=== PATIENT | female | born 1930 | race Caucasian/White ===

== ENCOUNTER 2018-04-20 13:01 | Inpatient (IN) | payer MEDICARE, BC ==
[~2018-04-20] VITALS: Ht 157.5 cm; Wt 73.2 kg
[~2018-04-20 13:01] MED LIST: NO HOME MEDS
[2018-04-20] MEDS ORDERED: ondansetron/PF 4mg/2ml inj IV ONE (16:10)
[2018-04-20] MEDS ORDERED: normal saline 1000ML IV soln IVB ONE (16:10)
[2018-04-20 16:46] LABS: BASOPHILS % (AUTO) 0.4 % (0-1); EOSINOPHILS # (AUTO) 0.1 X10'3 (0-0.9); EOSINOPHILS % (AUTO) 1.2 % (0-6); HEMATOCRIT 42.1 % (35.0-45.0); HEMOGLOBIN 13.6 g/dl (12.0-16.0); LYMPHOCYTES # (AUTO) 1.1 X10'3 (1.1-4.8); LYMPHOCYTES % (AUTO) 9.8 % (21-51); MEAN CORPUSCULAR HEMOGLOBIN 28.9 PG (27.0-31.0); MEAN CORPUSCULAR HGB CONC 32.4 % (33.0-36.5); MEAN CORPUSCULAR VOLUME 89.4 FL (78-98); MEAN PLATELET VOLUME 9.7 FL (7.4-10.4); MONOCYTES # (AUTO) 0.6 X10'3 (0-0.9); NEUTROPHILS # (AUTO) 9.7 X10'3 (1.8-7.7); NEUTROPHILS % (AUTO) 83.6 % (42-75); PLATELET COUNT 239 X10'3 (140-440); RED CELL DISTRIBUTION WIDTH 14.1 % (11.5-14.5); WHITE BLOOD COUNT 11.6 X10'3 (4.5-11.0)
[2018-04-20 16:59] LABS: ALANINE AMINOTRANSFERASE 37 U/L (12-78); ALBUMIN/GLOBULIN RATIO 1.2 (1.1-1.5); ALKALINE PHOSPHATASE 47 IU/L (46-116); ANION GAP 12 (8-16); ASPARTATE AMINO TRANSFERASE 30 U/L (10-37); BILIRUBIN,TOTAL 1.1 MG/DL (0.1-1.0); BLOOD UREA NITROGEN 21 MG/DL (7-18); BUN/CREATININE RATIO 23.9 (6.6-38.0); CALCIUM 9.3 MG/DL (8.5-10.1); CHLORIDE 105 MMOL/L (99-107); CREATININE 0.88 MG/DL (0.40-0.90); GLUCOSE 137 MG/DL (70-104); LIPASE 141 U/L (73-393); POTASSIUM 3.4 MMOL/L (3.5-5.1); SODIUM 143 MMOL/L (135-145); TOTAL CARBON DIOXIDE 26.5 MMOL/L (24-32); TOTAL PROTEIN 7.4 G/DL (6.4-8.2); eGFR 61 ML/MIN
[2018-04-20 17:03] LABS: CLARITY,URINE SLIGHTLY CLOUDY (Clear); COLOR,URINE Yellow (Yellow); GLUCOSE, URINE Negative (Neg); PH,URINE 5.5 (4.8-8.0); PROTEIN,URINE 30 mg/dl (Neg); UA COLLECTION TYPE VOIDED
[2018-04-20 17:04] LABS: KETONES,URINE 15 mg/dl (Neg); LEUKOCYTE ESTERASE ,URINE MODERATE (Neg); NITRITES, URINE NEGATIVE (Neg); OCCULT BLOOD,URINE LARGE (Neg); UROBILINOGEN,URINE 0.2 E.U/dL (0.2-1.0)
[2018-04-20 17:07] LABS: AMORPHOUS URATES 1+; BACTERIA,URINE NONE SEEN /HPF (Neg); MUCUS STRANDS NONE SEEN /LPF (Neg); SQUAMOUS EPITHELIAL CELL,UR MODERATE /LPF (FEW); URIC ACID CRYSTALS 1+ /HPF (NEGATIVE); WBC,URINE 30-50 /HPF (0-4)
[2018-04-20] MEDS ORDERED: ondansetron/PF 4mg/2ml inj IV PRN (17:40)
[2018-04-20] MEDS ORDERED: mag hydrox/Alum hydrox/simeth 30ml oral suspension PO PRN (17:40)
[2018-04-20] MEDS ORDERED: acetaminophen 650mg rectal suppository RC PRN (17:40)
[2018-04-20] MEDS ORDERED: acetaminophen 325mg tablet PO PRN ×2 (17:40)
[2018-04-20] MEDS ORDERED: magnesium 4gm in 100ml NS 100 ML IV PRN (17:40)
[2018-04-20] MEDS ORDERED: potassium Cl 20 mEq SR tablet PO PRN ×2 (17:40)
[2018-04-20] MEDS ORDERED: diphenhydrAMINE 25mg capsule PO PRN (17:40)
[2018-04-20] MEDS ORDERED: magnesium Cl slow-release 64mg tablet PO PRN (17:40)
[2018-04-20] MEDS ORDERED: magnesium hydroxide 30ml (MOM) UD suspension PO PRN (17:40)
[2018-04-20] MEDS: K and/or MAG REPLACEMENT MC SCH (17:40)
[2018-04-20] MEDS ORDERED: HYDROmorphone 1 mg/ml syringe IV PRN (17:40)
[2018-04-20] MEDS ORDERED: diphenhydrAMINE 50 mg/ml inj IV PRN (17:40)
[2018-04-20] MEDS ORDERED: potassium Cl 40MEQ/NS 500ml 500 ML IV PRN ×2 (17:40)
[2018-04-20] MEDS ORDERED: bisacodyl 10mg suppository rectal RC PRN (17:40)
[2018-04-20] MEDS ORDERED: CefTRIAXone/D5W-Rocephin 1gm 50 ML IV ONE (17:45)
[2018-04-20] MEDS ORDERED: ketorolac tromethamine 15mg/ml inj. IV ONE (17:45)
[2018-04-20] MEDS: normal saline 1000ml 1,000 ML IV SCH (18:08)
[2018-04-20] MEDS: CefTRIAXone/D5W-Rocephin 1gm 50 ML IV SCH (18:10)
[2018-04-20] MEDS ORDERED: PRE1T PO (18:37)
[2018-04-20] MEDS: heparin, porcine 5000 units/ml vial SQ SCH (20:00)
[2018-04-20 21:10] VITALS: BP 119/59
[2018-04-20] MEDS: HYDROmorphone 1 mg/ml syringe IV PRN (23:11)
[2018-04-21] VITALS (20 sets, daily range): BP systolic 93–123; BP diastolic 43–88
[2018-04-21] MEDS: normal saline 1000ml 1,000 ML IV SCH ×3 (03:57→23:56)
[2018-04-21] MEDS: HYDROmorphone 1 mg/ml syringe IV PRN ×2 (03:59→09:03)
[2018-04-21 05:46] LABS: ALANINE AMINOTRANSFERASE 25 U/L (12-78); ALBUMIN/GLOBULIN RATIO 1.2 (1.1-1.5); ALKALINE PHOSPHATASE 42 IU/L (46-116); ANION GAP 10 (8-16); ASPARTATE AMINO TRANSFERASE 22 U/L (10-37); BILIRUBIN,TOTAL 0.9 MG/DL (0.1-1.0); BLOOD UREA NITROGEN 18 MG/DL (7-18); BUN/CREATININE RATIO 18.8 (6.6-38.0); CHLORIDE 110 MMOL/L (99-107); CREATININE 0.96 MG/DL (0.40-0.90); GLUCOSE 94 MG/DL (70-104); MAGNESIUM 1.7 MG/DL (1.5-2.4); PHOSPHORUS 3.2 MG/DL (2.3-4.5); POTASSIUM 3.3 MMOL/L (3.5-5.1); SODIUM 145 MMOL/L (135-145); TOTAL CARBON DIOXIDE 25.2 MMOL/L (24-32); TOTAL PROTEIN 5.6 G/DL (6.4-8.2); eGFR 55 ML/MIN
[2018-04-21 06:47] LABS: BASOPHILS % (AUTO) 0.5 % (0-1); EOSINOPHILS # (AUTO) 0.1 X10'3 (0-0.9); EOSINOPHILS % (AUTO) 0.9 % (0-6); HEMOGLOBIN 11.5 g/dl (12.0-16.0); LYMPHOCYTES # (AUTO) 2.2 X10'3 (1.1-4.8); LYMPHOCYTES % (AUTO) 23.8 % (21-51); MEAN CORPUSCULAR HEMOGLOBIN 29.5 PG (27.0-31.0); MEAN CORPUSCULAR HGB CONC 32.9 % (33.0-36.5); MEAN CORPUSCULAR VOLUME 89.6 FL (78-98); MEAN PLATELET VOLUME 9.5 FL (7.4-10.4); MONOCYTES % (AUTO) 11.2 % (2-12); NEUTROPHILS # (AUTO) 5.8 X10'3 (1.8-7.7); NEUTROPHILS % (AUTO) 63.6 % (42-75); PLATELET COUNT 164 X10'3 (140-440); RED BLOOD COUNT 3.91 X10'6 (4.20-5.60); RED CELL DISTRIBUTION WIDTH 14.3 % (11.5-14.5); WHITE BLOOD COUNT 9.2 X10'3 (4.5-11.0)
[2018-04-21] MEDS ORDERED: LIDOcaine 1% 30ml vial 5 ML in potassium Cl 40MEQ/NS 500ml 500 ML IV PRN (07:10)
[2018-04-21] MEDS: CefTRIAXone/D5W-Rocephin 1gm 50 ML IV SCH (07:26)
[2018-04-21] MEDS: K and/or MAG REPLACEMENT MC SCH (07:33)
[2018-04-21] MEDS: predniSONE 1 mg tablet PO SCH (08:00)
[2018-04-21] MEDS: heparin, porcine 5000 units/ml vial SQ SCH ×2 (08:00→20:43)
[2018-04-21 11:25] LABS: INR 1.1 INR; PARTIAL THROMBOPLASTIN TIME 26 SECONDS (22-32); PROTHROMBIN TIME 10.9 SECONDS (9.0-12.0)
[2018-04-21] MEDS ORDERED: ringers solution, lacted 1,000 ML IV SCH (12:48)
[2018-04-21] MEDS ORDERED: HYDROmorphone inj. 0.5 MG/0.5 ML DISP.SYRIN IV PRN (12:50)
[2018-04-21] MEDS ORDERED: ondansetron/PF 4mg/2ml inj IV PRN (12:50)
[2018-04-21] MEDS ORDERED: fentaNYL/PF 50MCG/1 ML 2ML syringe ONE (13:07)
[2018-04-21] MEDS ORDERED: sevoflurane 250ml liquid IH ONE (13:09)
[2018-04-21] MEDS ORDERED: dexamethasone sod phosphate 4mg/ml inj. ONE (13:36)
[2018-04-21] MEDS ORDERED: propofol inj 20 ML IV ONE (13:36)
[2018-04-21] MEDS ORDERED: ePHEDrine 50MG/ML INJ. ONE (13:36)
[2018-04-21] MEDS ORDERED: LIDOcaine 2% (20mg/ml) 5ml vial ONE (13:36)
[2018-04-21] MEDS ORDERED: succinylcholine 20mg/ml inj IV ONE (13:36)
[2018-04-22 05:05] LABS: BASOPHILS % (AUTO) 0.2 % (0-1); EOSINOPHILS % (AUTO) 0.1 % (0-6); HEMATOCRIT 35.2 % (35.0-45.0); HEMOGLOBIN 11.4 g/dl (12.0-16.0); LYMPHOCYTES # (AUTO) 1.4 X10'3 (1.1-4.8); LYMPHOCYTES % (AUTO) 18.8 % (21-51); MEAN CORPUSCULAR HEMOGLOBIN 28.9 PG (27.0-31.0); MEAN CORPUSCULAR HGB CONC 32.3 % (33.0-36.5); MEAN CORPUSCULAR VOLUME 89.5 FL (78-98); MEAN PLATELET VOLUME 10.4 FL (7.4-10.4); MONOCYTES # (AUTO) 0.6 X10'3 (0-0.9); MONOCYTES % (AUTO) 7.7 % (2-12); NEUTROPHILS # (AUTO) 5.5 X10'3 (1.8-7.7); NEUTROPHILS % (AUTO) 73.2 % (42-75); PLATELET COUNT 162 X10'3 (140-440); RED BLOOD COUNT 3.93 X10'6 (4.20-5.60); RED CELL DISTRIBUTION WIDTH 14.3 % (11.5-14.5); WHITE BLOOD COUNT 7.4 X10'3 (4.5-11.0)
[2018-04-22 05:31] LABS: ALANINE AMINOTRANSFERASE 24 U/L (12-78); ALBUMIN 2.8 G/DL (3.4-5.0); ALKALINE PHOSPHATASE 36 IU/L (46-116); ANION GAP 9 (8-16); ASPARTATE AMINO TRANSFERASE 18 U/L (10-37); BILIRUBIN,TOTAL 0.7 MG/DL (0.1-1.0); BLOOD UREA NITROGEN 15 MG/DL (7-18); BUN/CREATININE RATIO 24.6 (6.6-38.0); CALCIUM 8.5 MG/DL (8.5-10.1); CHLORIDE 112 MMOL/L (99-107); CREATININE 0.61 MG/DL (0.40-0.90); GLUCOSE 118 MG/DL (70-104); MAGNESIUM 1.7 MG/DL (1.5-2.4); PHOSPHORUS 3.2 MG/DL (2.3-4.5); SODIUM 145 MMOL/L (135-145); TOTAL CARBON DIOXIDE 23.7 MMOL/L (24-32); TOTAL PROTEIN 5.7 G/DL (6.4-8.2); eGFR > 90 ML/MIN
[2018-04-22] MEDS: CefTRIAXone/D5W-Rocephin 1gm 50 ML IV SCH (07:32)
[2018-04-22] MEDS: heparin, porcine 5000 units/ml vial SQ SCH (07:38)
[2018-04-22] MEDS: predniSONE 1 mg tablet PO SCH (07:42)
[2018-04-22] MEDS: K and/or MAG REPLACEMENT MC SCH (08:00)
[2018-04-22] MEDS ORDERED: predniSONE 1 mg tablet PO SCH (08:00)
[2018-04-22 08:08] VITALS: BP 101/50
[2018-04-22] MEDS: normal saline 1000ml 1,000 ML IV SCH (09:40)
[2018-04-22 11:19] VITALS: BP 110/58
[2018-04-22] MEDS ORDERED: CEPH-572 PO (13:01)
== END 2018-04-22 15:10 | disposition home or self-care (01) | DRG 661 ==
LOC: ER 13:02 → ED HOLD 17:40 → SUR 3N 21:23
PROVIDERS: ADMIT Family Medicine; ATTEND Family Medicine
PROC: BT171ZZ Fluoroscopy of Left Ureter using Low Osmolar Contrast (ICD-10-PCS; 2018-04-21)
PROC: 0T778DZ Dilation of Left Ureter with Intraluminal Device, Via Natural or Artificial Opening Endoscopic (ICD-10-PCS; principal; 2018-04-21 13:09)
DX: N13.6 Pyonephrosis (principal); K86.9 Disease of pancreas, unspecified; M19.90 Unspecified osteoarthritis, unspecified site; M35.3 Polymyalgia rheumatica; Z96.641 Presence of right artificial hip joint; B96.20 Unspecified Escherichia coli [E. coli] as the cause of diseases classified elsewhere; Z66 Do not resuscitate; Z90.49 Acquired absence of other specified parts of digestive tract; Z88.5 Allergy status to narcotic agent; Z98.42 Cataract extraction status, left eye; Z98.41 Cataract extraction status, right eye; Z79.899 Other long term (current) drug therapy; Z82.0 Family history of epilepsy and other diseases of the nervous system; Z83.3 Family history of diabetes mellitus
CPT/HCPCS: 36415; 71045; 74018; 74176; 80053; 81001; 83605; 83690; 83735; 84100; 85025; 85610; 85730; 87040; 87070; 87077; 87088; 87186; 93005; 96361; 96374; 99285; A4402; C1758; C1769; C2617; G0378; J0330; J0696; J1100; J1170; J1644; J1885; J2001; J2405; J2704; J3010; J3480; J3490; J7030; J7120; J7512